=== PATIENT | female | born 1990 | race Caucasian/White ===

== ENCOUNTER 2021-01-09 14:22 | Emergency (ER) | payer OTHER ==
[~2021-01-09] VITALS: Ht 165.1 cm; Wt 60.8 kg
[2021-01-09 14:41] VITALS: BP 95/61
[2021-01-09] MEDS ORDERED: NACL 0.9% 1,000 ML IV SCH (14:50)
[2021-01-09] MEDS ORDERED: KETOROLAC 30 MG/ML VIAL IVP ONE (14:50)
[2021-01-09] MEDS ORDERED: ONDANSETRON 4 MG/2 ML VIAL IVP ONE (14:50)
--- NOTE | 2021-01-09 14:50 | NUR ---
Patient ambulated to bed 8. RN evaluating the patient at bedside.
--- NOTE | 2021-01-09 14:55 | NUR ---
Urine sample collected.
--- NOTE | 2021-01-09 14:55 | NUR ---
30 y/o F BIB mother from [facility] with c/c abdominal pain and cold-like symptoms. Patient A&Ox4, ambulatory, referred from Urgent Care for flu-like symptoms that began last night. Patient reports: body aches, ear ache, itchy throat, ehadache, runny nose, N/V/D, chills, dry cough. Patient states 5+ episodes of vomiting; denies any blood in emesis. Urgent care MD advised for ER evaluation for IVF / uncontrolled N/V after Zofran treatment. Patient denies SOB, CP, abdominal/back pain. Patient reports generalized body aches, rates it 10/10, aching/constant pain. Patient states Zofran at without relief. Denies any medications prior to arrival. Mom at bedside. pump tender in place. Bed locked in lowest position, side rails x1, call light in erach. PMH/Sx/Meds: Denies NKA
--- NOTE | 2021-01-09 15:00 | NUR ---
Blood sample collected, handed to CPT Maryam at ER bedside.
--- NOTE | 2021-01-09 15:18 | NUR ---
Dr. Diaz is evaluating patient at bedside.
[2021-01-09 15:37] LABS: BASOPHILS % (AUTO) 0.2 % (0.0-2.0); EOSINOPHILS % (AUTO) 0.2 % (0.0-4.0); HEMATOCRIT 38.5 % (36-48); HEMOGLOBIN 12.3 g/dL (12.0-16.0); LYMPHOCYTES # (AUTO) 0.3 K/uL (2.5-16.5); LYMPHOCYTES % (AUTO) 5.7 % (20.5-51.1); MEAN CORPUSCULAR HEMOGLOBIN 27 pg (27-31); MEAN CORPUSCULAR HGB CONC 32 g/dL (33-37); MEAN CORPUSCULAR VOLUME 83.9 fL (80-94); MONOCYTES # (AUTO) 0.4 K/uL (0.8-1.0); MONOCYTES % (AUTO) 6.5 % (1.7-9.3); NEUTROPHILS # (AUTO) 5.2 K/uL (1.8-7.7); NEUTROPHILS % (AUTO) 87.4 % (42.2-75.2); PLATELET COUNT (AUTO) 250 K/uL (140-450); RED BLOOD CELL COUNT(AUTO) 4.59 MIL/uL (4.20-5.40); RED CELL DISTRIBUTION WIDTH 16.3 % (11.6-13.7)
--- NOTE | 2021-01-09 15:45 | NUR ---
Patient reports positive relief and denies nausea at this time.
[2021-01-09 16:02] LABS: ANION GAP 10.6 (8-16); CARBON DIOXIDE 26.7 mmol/L (21-32); CREATININE 0.9 mg/dL (0.6-1.3); POTASSIUM 3.3 mmol/L (3.5-5.1); TOTAL BILIRUBIN 0.5 mg/dL (0.0-1.0)
--- NOTE | 2021-01-09 16:30 | NUR ---
Patient resting in position of comfort with mom at bedside. Bed locked in lowest position, side rails x 1, call light in reach.
[2021-01-09] MEDS ORDERED: NAPR-54 PO (16:51)
[2021-01-09] MEDS ORDERED: ONDA-24 SL (16:51)
[2021-01-09 17:13] VITALS: BP 103/63
--- NOTE | 2021-01-09 17:13 | NUR ---
Patient discharged with v/s stable. Written and verbal after care instructions given and explained. Patient alert, oriented and verbalized understanding of instructions. Ambulatory with steady gait. All questions addressed prior to discharge. ID band removed. Patient advised to follow up with PMD. Rx of Naproxen, Zofran given. Patient educated on indication of medication including possible reaction and side effects. Opportunity to ask questions provided and answered.
== END 2021-01-09 17:13 | disposition home or self-care (01) ==
LOC: MED 14:22
DX: B34.9 Viral infection, unspecified (principal); E86.0 Dehydration; Z79.899 Other long term (current) drug therapy
CPT/HCPCS: 36415; 80053; 81002; 81025; 83690; 85025; 96361; 96374; 96375; 99284; J1885; J2405; J7030